=== PATIENT | male | born 1940 | race Caucasian/White ===

== ENCOUNTER 2016-07-01 08:41 | Inpatient (IN) | payer OTHER, MEDICARE ==
[~2016-07-01] VITALS: Ht 175.3 cm; Wt 80.6 kg
[2016-07-01] VITALS (8 sets, daily range): BP systolic 107–152; BP diastolic 45–66
[2016-07-01] MEDS ORDERED: FIRST-VANCOM25 MG/ML PO (11:56)
[2016-07-01] MEDS ORDERED: FUROSEMIDE40 MG PO (11:56)
[2016-07-01] MEDS ORDERED: LOPRESSOR50 MG PO (11:57)
[2016-07-01] MEDS ORDERED: SACCHAROMYCES BOULARDII PO (11:59)
[2016-07-01] MEDS ORDERED: COUMADIN3 MG PO (12:00)
--- NOTE | 2016-07-01 19:39 | HISTORY AND PHYSICAL ---
ADMITTED: 07/01/2016 CHIEF COMPLAINT: 1. Shortness of breath 2. Increased work of breathing HISTORY OF PRESENT ILLNESS: This is a 75-year-old male with a history of non- small cell lung cancer and recent C. difficile colitis, presenting to the hospital with increased work of breathing and shortness of breath. The patient states that he usually has a chronic cough that is productive; however, he denies any fever over the last couple of weeks. The patient states that on 06/16/2016 he was given an antibiotic for an abscessed tooth. He then presented on 06/18/2016 to the emergency department with diarrhea , fever, and stomach pain and was diagnosed with C. difficile colitis. He was admitted to [facility]; however, after he was not improving and the deviation of atrial fibrillation, he was transferred to [facility] for a higher level of care on 06/23/2016. His diarrhea was improving; however, he started developing shortness of breath while at [facility], but he was discharged home on 06/28/2016. On 06/29/2016, the patient saw his primary care provider and started using an inhaler, which initially did help; however, his work of breathing and shortness of breath continued to worsen until presenting to the emergency department again the evening of 06/30/2016. MEDICAL/SURGICAL HISTORY: Non-small cell lung cancer, and he has had 47 radiation treatments and 37 chemotherapy treatments, the last of which was on 06/07/2016. He has new-onset atrial fibrillation within the last month and is on anticoagulation for this. He has a left knee replacement, 3 broken legs, left rotator cuff repair, microdiskectomy in his lumbar spine, right inguinal repair, and left hand surgery. MEDICATIONS: 1. Furosemide 40 mg p.o. daily. 2. Metoprolol 50 mg p.o. b.i.d. 3. Saccharomyces boulardii 250 mg p.o. b.i.d. 4. Vancomycin 125 mg p.o. q.i.d. 5. Warfarin 3 mg p.o. daily. ALLERGIES: 1. NONE. SOCIAL HISTORY: The patient lives with his and dog. He denies any alcohol or drug use. He did quit smoking approximately 35 years ago; but at that point, had smoked 45 pack years. FAMILY HISTORY: Mother had emphysema but was a smoker. Father in his sleep. REVIEW OF SYSTEMS: PHYSICAL EXAMINATION: VITAL SIGNS: Blood pressure is 146/91, pulse is 113, O2 saturation is 98% on 4 L of oxygen. He is afebrile. GENERAL: This is an elderly male lying in bed with mild increased work of breathing. HEENT: Head is atraumatic, normocephalic. Pupils are equal, round, and reactive to light with accommodation bilaterally. Extraocular muscles are intact bilaterally. NECK: Trachea is midline. There is no JVD. HEART: S1, S2, tachycardia. No S3, S4, gallops, or rubs. There is a 2/6 systolic murmur increased at the base. LUNGS: Coarse diffusely with crackles in the bases and increased on the right side and mild wheezing. ABDOMEN: Soft, nontender, nondistended without hepatosplenomegaly or masses. Bowel sounds are active. EXTREMITIES: There is no peripheral edema. LAB/IMAGING: Labs: Sodium is 131, potassium is 4.2, chloride is 93, bicarbonate is 34, BUN of 9, creatinine 0.66, glucose of 123, total protein of 4.65, albumin is 6.5 , calcium is 8.4. White blood cell count of 18.6, hemoglobin of 11.3, hematocrit of 35.8, and platelets of 424. Alkaline phosphatase of 66, ALT of 20, AST of 28, total bilirubin is 0.3. BNP of 340. Troponin is less than 0.01. Flu is negative. INR is 1.4. Blood cultures x2 are pending at [facility]. Other studies: CTA done today showed extensive consolidation of the right upper and middle lobes and alveolar infiltrates in the right lower lobes. CT of his abdomen on 06/18/2016 showed severe colitis with increasing ascites, moderate pericardial effusions, moderate hiatal hernia, and a small pleural effusion. EKG shows 100 beats per minute in a sinus rhythm with a QTc of 419 and left atrial enlargement. IMPRESSION: This is a 75-year-old male with history of non-small cell carcinoma of the lung and recent Clostridium difficile infection, presenting to the hospital with increasing work of breathing and shortness of breath secondary to severe pneumonia. The family is aware of the gravity of the situation. PLAN: 1. Fluids, electrolytes, and nutrition: We will allow the patient to eat as is safe. 2. Cardiac: The patient did have a moderate pericardial effusion as of the CT scan done 06/18/2016. I do not think that this has been reassessed. Will have to monitor closely. 3. Respiratory: The patient has extensive pneumonia of his lungs. We will continue antibiotics and breathing treatments and start steroids. 4. Gastrointestinal Clostridium difficile colitis. Continue oral vancomycin. 5. Prophylaxis: The patient is on Coumadin, but is subtherapeutic on his treatment. Will continue the Coumadin and start Lovenox until his PT/INR is therapeutic. The patient will likely have decreased oral intake and, therefore, we will start famotidine for gastrointestinal ulcer prophylaxis. 6. CODE STATUS: DO NOT RESUSCITATE. HE ALSO DOES NOT WANT TO EVER BE VENTILATED. I did have this discussion with the patient and his today.
[2016-07-02] VITALS (8 sets, daily range): BP systolic 105–132; BP diastolic 48–74
--- NOTE | 2016-07-02 11:10 | Progress Note ---
Subjective General Patient feels much improved today. cough and SOB improved. Less fatigued and more awake. No chest pain. No vomitting. Still having diarrhea, although stable. Has new onset of nausea this am. Physical Exam Vital Signs / I&Os Vital Signs Date Time Temp Pulse Resp B/P Pulse O2 O2 Flow FiO2 Ox Delivery Rate 07/02 0840 105 119/48 07/02 0800 4.0 07/02 0800 Mask 5.0 07/02 0711 36.4 93 18 105/59 100 Mask 5.0 07/02 0046 5.0 07/02 0041 35.7 141 22 121/74 100 Mask 5.0 07/01 2315 Mask 5.0 07/01 2254 36.6 91 24 113/61 99 Nasal 5.0 Cannula 07/01 2107 36.3 102 24 107/56 100 Nasal 5.0 Cannula 07/01 2022 5.0 07/01 1934 117/45 07/01 1850 36.8 110 28 137/54 90 Nasal 4.0 Cannula 07/01 1424 37.5 07/01 1402 121 15 152/60 94 Nasal 4.0 Cannula 07/01 1351 2.0 07/01 1200 116 26 140/49 100 Nasal 4.0 Cannula 07/01 1110 Nasal 4.0 Cannula I&O 07/02 0000 07/01 1600 07/01 0800 Intake Total 300 350 Output Total 3340 1200 Balance -3040 -850 General Appearance Alert, No acute distress, Mild distress Lungs Course lung sounds diffusely with diffuse wheezing, but improved from yesterday. Cardiovascular Regular rate and rhythm, Normal S1 and S2, No murmurs, gallops, rubs Abdomen Normal bowel sounds, Soft, No tenderness Extremities No edema Assessment and Plan Problem List 1. Pneumonia Plan Improving on antibiotics. 2. Non-small cell cancer of right lung Plan will f/u with his oncologist as OP. 3. C. difficile colitis Plan On oral vanco.
[2016-07-02] MEDS ORDERED: XANAX0.25 MG PO (12:46)
[2016-07-03 01:35] VITALS: BP 158/70
[2016-07-03 06:53] VITALS: BP 121/67
--- NOTE | 2016-07-03 08:16 | Progress Note ---
Subjective General Note Date: July 03, 2016 Admission Date: July 01, 2016 Hospital Day: 3 PCP: Sunny Jameson M.D. Status: Inpatient Advanced Directive: NO CODE Room: 306 Brief History: The patient is a 75-year-old white male with a significant past medical history of lung CA, atrial fibrillation, chronic anticoagulation, C. difficile enterocolitis, degenerative joint disease, who presented to [facility] emergency department on the day of admission secondary to complaints of shortness of breath. ER evaluation was consistent with right-sided pneumonia, C. difficile colitis, atrial fibrillation, and chronic anticoagulation. Secondary to the above, the patient was admitted by Edilia Kearns M.D. for further evaluation and treatment For other history present illness, past medical history, family history, social history, review of systems, and admission physical examination please see the patient's history and physical examination and ER visit note in the patient's medical record. Subjective: The patient states he is doing somewhat better today. Diarrhea is improving. Remains short of breath but stable. Overall feels improved Patient requests: None Medications and Allergies Medications Current Medications Sig/Violeta Start time Last Medication Dose Route Stop Time Status Admin Hydrocortisone/ See Dose TID PRN 07/02 1745 AC Pramoxine Insts (1) TOP Alprazolam 0.25 MG BID PRN 07/02 1411 AC 07/02 PO 2113 Ceftriaxone Sodium/ 50 ML DAILY 07/02 0900 AC 07/02 Dextrose IV 0829 Furosemide 40 MG DAILY 07/02 0900 AC 07/02 PO 0829 Sodium Chloride/ 1,000 ML ASDIRECTED 07/02 0745 07/02 Electrolytes IV 2120 Metoprolol Tartrate 50 MG BID 07/01 2100 AC 07/02 PO 211 Methylprednisolone 80 MG Q8H 07/01 1800 AC 07/03 Sodium Succinate IV 0114 Patient Own See Dose BID 07/01 1530 AC 07/02 Medication Insts (2) PO 2113 Clarify Med Order See Dose ASDIRECTED 07/01 1515 AC Insts (3) PO Azithromycin 500 MG 1200 07/01 1500 AC 07/02 Sodium Chloride 250 ML IV 07/03 1300 1200 Enoxaparin Sodium 40 MG QAM 07/01 1500 AC 07/02 SC 0829 Famotidine 20 MG Q12HR 07/01 1500 AC 07/02 PO 2114 Warfarin Sodium 3 MG DAILY@1400 07/01 1500 AC 07/02 PO 1324 Oxycodone/ See Dose Q4H PRN 07/01 1445 AC 07/03 Acetaminophen Insts (4) PO 0117 Acetaminophen 650 MG Q6H PRN 07/01 1430 AC PO Al Hydrox/Mg Hydrox/ 15 ML Q1H PRN 07/01 1430 AC Simethicone PO Atropine Sulfate 0.5 MG Q3MIN PRN 07/01 1430 AC IV Lidocaine HCl See Dose ONCE PRN 07/01 1430 AC Insts (5) IV Magnesium Hydroxide 10 ML DAILY PRN 07/01 1430 AC PO Morphine Sulfate 2 MG Q3M PRN 07/01 1430 AC 07/01 IV 1633 Nitroglycerin 0.4 MG Q5M PRN 07/01 1430 AC SL Ondansetron HCl 4 MG Q6H PRN 07/01 1430 AC PO Ondansetron HCl 4 MG Q6H PRN 07/01 1430 AC IV Albuterol/Ipratropium 3 ML RTQ6H 07/01 1400 AC 07/03 IN 0717 Vancomycin HCl 125 MG QID 07/01 1400 AC 07/03 PO 0645 Dose Instructions: (1)Hydrocortisone/Pramoxine: APPLY TO RECTUM (2)Patient Own Medication: FLORASTOR 250 MG/CAP (3)Clarify Med Order: PT MEDS IN PSB (OMNICELL) (4)Oxycodone/Acetaminophen: 1 - 2 TABLETS (5)Lidocaine HCl: 1.5 MG/KG Allergies Coded Allergies: NKA (07/01/16) Physical Exam Vital Signs / I&Os Vital Signs Date Time Temp Pulse Resp B/P Pulse O2 O2 Flow FiO2 Ox Delivery Rate 07/03 0717 3.0 07/03 0653 97.9 98 17 121/67 97 Nasal 3.0 Cannula 07/03 0146 3.0 07/03 0135 97.9 97 26 158/70 100 Nasal 5.0 Cannula 07/03 011 Nasal 3.0 Cannula 07/023 97.5 91 18 111/59 98 Nasal 5.0 Cannula 07/02 1999 Nasal 4.5 Cannula 07/02 1955 4.5 07/02 1905 98.4 106 24 132/59 98 Nasal 4.0 Cannula 07/02 1455 98 20 127/64 100 Nasal 5.0 Cannula 07/02 1400 4.0 07/02 1126 98.4 91 20 131/65 98 Mask 4.0 07/02 0840 105 119/48 I&O 07/03 0000 07/02 1600 07/02 0800 Intake Total 520 1758 2780 Output Total 250 550 600 Balance 270 1208 2180 General Appearance Alert, Oriented X3, Cooperative, No acute distress Lungs decreased breath sounds right side with rales present Cardiovascular Normal S1 and S2, irregular rhythm, rate slightly elevated 100- 110/minute Abdomen Normal bowel sounds, Soft, No tenderness Extremities No cyanosis, No clubbing Neurological Grossly normal. Psych/Mental Status Mental status normal, Mood normal LAB Results Laboratory Tests 07/03 0420 Chemistry Plasma Sodium (136 - 145 mmol/L) 140 Plasma Potassium (3.5 - 5.1 mmol/L) 4.5 Plasma Chloride (98 - 107 mmol/L) 100 CO2 (Enzymatic) (21 - 32 mmol/L) 35 BUN (7 - 18 mg/dL) 9 Creatinine (0.6 - 1.3 mg/dL) 0.6 Est GFR ( Amer) (mL/min) >60 Est GFR (Non-Af Amer) (mL/min) >60 Glucose (70 - 110 mg/dL) 159 Plasma Calcium (8.5 - 10.1 mg/dL) 8.4 Plasma Magnesium (1.8 - 2.4 mg/dL) 2.2 Coagulation INR (0.8 - 1.2) 2.3 Hematology WBC (4.5 - 11.5 K/uL) 9.7 RBC (4.50 - 5.90 M/uL) 3.74 Hgb (13.5 - 17.5 gm/dL) 10.2 Hct (41.0 - 53.0 %) 31.9 MCV (80 - 100 fL) 85 MCH (26 - 34 pg) 27 RDW (11.6 - 14.8 %) 15.8 Neut % (Auto) (50 - 75 %) 93.2 Lymph % (Auto) (25 - 40 %) 2.9 [place] % (Auto) (3 - 14 %) 3.9 Eos % (Auto) (0 - 4 %) 0 Baso % (Auto) (0 - 2 %) 0 Plt Count, EDTA (150 - 400 K/uL) 440 PUBS MCHC (31 - 37 g/dL) 32 Assessment and Plan Problem List 1. Pneumonia Plan -Continue present therapy Rocephin/Zithromax -Repeat chest x-ray in a.m. -Monitor -Status appears improved with normalization of WBC/patient afebrile -Recheck CBC with manual differential, Procalcitonin a.m. 2. Non-small cell cancer of right lung Plan -Stable -Follow up with hematology/oncology postdischarge -No further evaluation at this time. 3. C. difficile colitis Plan -Status improved -Diarrhea improved -Continue vancomycin 125 mg by mouth 4 times a day -Monitor 4. Atrial fibrillation Status Chronic Onset Date Unknown Plan -Patient with findings of atrial fibrillation -Attempt to obtain previous echocardiogram -Continue beta michael for rate control with ongoing anticoagulation -Monitor 5. Chronic anticoagulation Status Chronic Onset Date Unknown Plan -Continue Coumadin -INR therapeutic at 2.3 -DC Lovenox -Monitor INR Current status: Fair, improved Anticipated discharge date: Anticipated discharge in 1-2 days Anticipated discharge placement: Home Patient care time: Time spent in chart review, patient interview, physical exam, CPOE, and care documentation: 25 minutes Visit to patient today: 2 Complexity of care: Moderate E&M Codes Rounding: Inpt-Moderate/[id number]
[2016-07-03 11:15] VITALS: BP 125/67
[2016-07-03 14:57] VITALS: BP 139/68
[2016-07-03 18:22] VITALS: BP 160/72
[2016-07-03 22:43] VITALS: BP 139/72
[2016-07-04] VITALS (11 sets, daily range): BP systolic 106–175; BP diastolic 45–96
--- NOTE | 2016-07-04 06:20 | DIAGNOSTIC IMAGING REPORT ---
PROCEDURE: XR CHEST 1 VIEW INDICATION: Pneumonia. History of lung carcinoma. TECHNIQUE: Portable AP view (so 05:00 hours). COMPARISON: None. FINDINGS: There is severe chronic right upper lung volume loss and pleural thickening with mild pleural thickening or effusion at the right lung base. Mild cardiomegaly with pulmonary vascular congestion. There mild increased parenchymal changes at the lung bases with sparing of the left upper lung. Status post resection of the left distal clavicle. Thorax is normal. IMPRESSION: 1. Severe chronic right upper lung volume loss and pleural thickening consistent with history of lung carcinoma (clinical confirmation recommended). 2. Mild pleural thickening or small effusion at the right lung base. 3. Mild cardiomegaly and pulmonary vascular congestion. While there is no evidence of interstitial edema, consider increased fluid status or occult congestive heart failure. 4. Mild parenchymal changes of bilateral lung bases. Consider underlying pneumonia (e.g., aspiration, bacterial). 5. Comparison with prior outside studies would be of assistance in evaluating. 6. Findings discussed with Dr. Taveras.
--- NOTE | 2016-07-04 07:52 | Progress Note ---
Subjective General Note Date: July 04, 2016 Admission Date: July 01, 2016 Hospital Day: 4 PCP: Sunny Jameson M.D. Status: Inpatient Advanced Directive: NO CODE Room: 306 Brief History: The patient is a 75-year-old white male with a significant past medical history of lung CA, atrial fibrillation, chronic anticoagulation, C. difficile enterocolitis, degenerative joint disease, who presented to [facility] emergency department on the day of admission secondary to complaints of shortness of breath. ER evaluation was consistent with right-sided pneumonia, C. difficile colitis, atrial fibrillation, and chronic anticoagulation. Secondary to the above, the patient was admitted by Edilia Kearns M.D. for further evaluation and treatment For other history present illness, past medical history, family history, social history, review of systems, and admission physical examination please see the patient's history and physical examination and ER visit note in the patient's medical record. Subjective: The patient states he is doing somewhat better today, had episode of fairly severe shortness of breath last night. Diarrhea is improving. Remains short of breath but stable. Overall feels improved but doesn't feel ready for discharge at this time Patient requests: None Medications and Allergies Medications Current Medications Sig/Violeta Start time Last Medication Dose Route Stop Time Status Admin Albuterol Sulfate 2.5 MG Q2H PRN 07/04 0445 AC 07/04 IN 0450 Metoprolol Tartrate 50 MG Q8HR 07/03 1800 AC 07/04 PO 0600 Hydrocortisone/ See Dose TID PRN 07/02 1745 AC Pramoxine Insts (1) TOP Alprazolam 0.25 MG BID PRN 07/02 1411 AC 07/03 PO 211 Ceftriaxone Sodium/ 50 ML DAILY 07/02 0900 AC 07/03 Dextrose IV 0928 Furosemide 40 MG DAILY 07/02 0900 AC 07/03 PO 0929 Methylprednisolone 80 MG Q8H 07/01 1800 AC 07/04 Sodium Succinate IV 0152 Patient Own See Dose BID 07/01 1530 AC 07/03 Medication Insts (2) PO 3 Clarify Med Order See Dose ASDIRECTED 07/01 1515 AC Insts (3) PO Famotidine 20 MG Q12HR 07/01 1500 AC 07/03 PO 2116 Warfarin Sodium 3 MG DAILY@1400 07/01 1500 AC 07/03 PO 1448 Oxycodone/ See Dose Q4H PRN 07/01 1445 AC 07/04 Acetaminophen Insts (4) PO 0158 Acetaminophen 650 MG Q6H PRN 07/01 1430 AC PO Al Hydrox/Mg Hydrox/ 15 ML Q1H PRN 07/01 1430 AC Simethicone PO Atropine Sulfate 0.5 MG Q3MIN PRN 07/01 1430 AC IV Lidocaine HCl See Dose ONCE PRN 07/01 1430 AC Insts (5) IV Magnesium Hydroxide 10 ML DAILY PRN 07/01 1430 AC PO Morphine Sulfate 2 MG Q3M PRN 07/01 1430 AC 07/01 IV 1633 Nitroglycerin 0.4 MG Q5M PRN 07/01 1430 AC SL Ondansetron HCl 4 MG Q6H PRN 07/01 1430 AC PO Ondansetron HCl 4 MG Q6H PRN 07/01 1430 AC IV Albuterol/Ipratropium 3 ML RTQ6H 07/01 1400 AC 07/04 IN 0746 Vancomycin HCl 125 MG QID 07/01 1400 AC 07/04 PO 0545 Dose Instructions: (1)Hydrocortisone/Pramoxine: APPLY TO RECTUM (2)Patient Own Medication: FLORASTOR 250 MG/CAP (3)Clarify Med Order: PT MEDS IN PSB (OMNICELL) (4)Oxycodone/Acetaminophen: 1 - 2 TABLETS (5)Lidocaine HCl: 1.5 MG/KG Allergies Coded Allergies: NKA (07/01/16) Physical Exam Vital Signs / I&Os Vital Signs Date Time Temp Pulse Resp B/P Pulse O2 O2 Flow FiO2 Ox Delivery Rate 07/04 0741 3.0 07/04 0651 98.1 96 22 128/80 98 Nasal 3.0 Cannula 07/04 0539 137/75 07/04 0451 3.0 07/04 0407 155/90 07/04 0402 93 22 175/96 99 Nasal 2.5 Cannula 07/04 0125 3.0 07/04 0110 97.9 100 22 141/88 97 Nasal 3.0 Cannula 07/033 97.9 96 20 139/72 100 Nasal 3.0 Cannula 07/03 1999 Nasal 2.5 Cannula 07/03 193 2.5 07/03 1822 97.9 115 18 160/72 96 Nasal 2.5 Cannula 07/03 1457 98.4 100 28 139/68 100 Nasal 2.5 Cannula 07/03 1335 3.0 07/03 1115 98.4 92 21 125/67 97 Nasal 3.0 Cannula 07/03 1056 3.0 I&O 07/04 0000 07/03 1600 07/03 0800 Intake Total 2871 843 1856 Output Total 1500 1600 600 Balance 359 -1120 786 General Appearance Alert, Oriented X3, Cooperative, No acute distress Lungs Diffuse rhonchi, minimal expiratory wheezes with basilar crackles present Cardiovascular Normal S1 and S2, irregular rhythm, mild tachycardia Abdomen Normal bowel sounds, Soft, No tenderness Extremities No cyanosis, No clubbing, 2+ pedal edema bilaterally Neurological Grossly normal Psych/Mental Status Mental status normal, Mood normal LAB Results Laboratory Tests 07/04 07/04 07/04 0430 0430 0400 Chemistry B-Natriuretic Peptide (5 - 100 pg/ml) 1370 Cancelled Procalcitonin (0 - 0.5 ng/mL) <0.5 Coagulation INR (0.8 - 1.2) 2.7 Hematology WBC (4.5 - 11.5 K/uL) 9.6 RBC (4.50 - 5.90 M/uL) 4.04 Hgb (13.5 - 17.5 gm/dL) 10.8 Hct (41.0 - 53.0 %) 34.3 MCV (80 - 100 fL) 85 MCH (26 - 34 pg) 27 RDW (11.6 - 14.8 %) 15.6 Neut % (Auto) (50 - 75 %) 86 Lymph % (Auto) (25 - 40 %) 4 [place] % (Auto) (3 - 14 %) 2 Eos % (Auto) (0 - 4 %) 0 Baso % (Auto) (0 - 2 %) 0 Band Neutrophils % (0 - 8 %) 8 Metamyelocytes % (0 - 1 %) 0 Myelocytes (0 - 1 %) 0 Other Cell Type 0 Plt Count, EDTA (150 - 400 K/uL) 504 RBC Morphology (52847 A) 1+ MICROCYTOSIS PUBS MCHC (31 - 37 g/dL) 31 Imaging Chest x-ray IMPRESSION: 1. Severe chronic right upper lung volume loss and pleural thickening consistent with history of lung carcinoma (clinical confirmation recommended). 2. Mild pleural thickening or small effusion at the right lung base. 3. Mild cardiomegaly and pulmonary vascular congestion. While there is no evidence of interstitial edema, consider increased fluid status or occult congestive heart failure. 4. Mild parenchymal changes of bilateral lung bases. Consider underlying pneumonia (e.g., aspiration, bacterial). 5. Comparison with prior outside studies would be of assistance in evaluating. 6. Findings discussed with Dr. Taveras. Dictated by: LAN LYLE MD D: CHELSEY;07/04/16 0619 Assessment and Plan Problem List 1. Pneumonia Plan -Improved -Afebrile, WBC within normal limits, Procalcitonin within normal limits -Switch to Ceftin 500 mg by mouth twice a day -Possible discharge in 1-2 days with improved status 2. Non-small cell cancer of right lung Plan -stable -Scheduled follow-up this Thursday, July 07, 2016 with oncology -No further evaluation at this time 3. C. difficile colitis Plan -Stable to improved -Decreased diarrhea with increasing formed stool -Continue vancomycin 125 mg by mouth 4 times a day -Monitor 4. Chronic anticoagulation Status Chronic Onset Date Unknown Plan -INR therapeutic -INR 2.7 today -Continue present medical regimen -INR in a.m. 5. CHF (congestive heart failure) Status Chronic Onset Date Unknown Plan -Status unstable, patient with increased shortness of breath this a.m. -BNP elevated -Echocardiogram shows EF in the 30% range. But poor quality study -Atacand 4 mg by mouth twice a day added to medical regimen -Continue beta michael -Lasix 20 mg IV, 40 mg by mouth daily -Monitor -Low-salt diet 6. Atrial fibrillation Status Chronic Onset Date Unknown Plan -Heart rate slightly increased -Increased Lopressor to 50 mg by mouth 3 times a day -Monitor -Check echocardiogram -Continue anticoagulation Current status: Fair, unstable Anticipated discharge date: Anticipated discharge in 1-2 days with improved status Anticipated discharge placement: Home Patient care time: Time spent in chart review, patient interview, physical exam, CPOE, and care documentation: 25 minutes Visit to patient today: 1 Complexity of care: Moderate E&M Codes Rounding: Inpt-High/[id number]
--- NOTE | 2016-07-04 18:28 | DIAGNOSTIC IMAGING REPORT ---
REFERRING PHYSICIAN/PROVIDER: Jay Kinsey MD CONSULTING TRACKMOBILE OPERATOR: David York Jr MD PROCEDURE: M-mode 2D echocardiography with spectral and color flow Doppler TECHNICAL QUALITY: The study quality was technically difficult. INDICATION: Afib, chf RHYTHM DURING PROCEDURE: The patient was in atrial fibrillation with rapid ventricular response during the exam of the heart rate exceeding 100 beats per minute. INTERPRETATIONS: LEFT VENTRICLE: The left ventricle is grossly normal size. The left ventricular ejection fraction is grossly normal. Regional wall motion abnormalities cannot be excluded due to limited visualization. Diastolic function could not be accurately assessed due to atrial fibrillation. RIGHT VENTRICLE: The right ventricle grossly appears normal in size with probable normal systolic function. ATRIA: The left atrium is not well visualized. The right atrium is not well visualized. The interatrial septum is intact with no evidence for an atrial septal defect. MITRAL VALVE: The mitral valve is grossly normal. There is trace mitral regurgitation. AORTIC VALVE: The aortic valve is not well visualized. There is no hemodynamically significant valvular aortic stenosis. There is trace aortic regurgitation. TRICUSPID VALVE: The tricuspid valve is not well visualized but is grossly normal. There is no evidence of tricuspid regurgitation. Pulmonary artery pressures could not be estimated because of the lack of a measurable TR jet velocity. PULMONIC VALVE: The pulmonic valve is not well visualized. GREAT VESSELS: The aorta root is not well visualized. The ascending aorta cannot be visualized. The IVC is dilated yet a collapses greater than 50% with the sniff. This suggests a right atrial pressure of 8 mmHg. PERICARDIUM: There is a small to moderate size circumferential pericardial effusion noted. There are no echocardiographic indications of cardiac tamponade. Pericardial fibrinous strands are noted. There is a moderate left-sided pleural effusion. IMPRESSION: 1. There is a small to moderate-sized pericardial effusion. There is no evidence of echocardiographic indications of cardiac tamponade. 2. The left ventricle is grossly normal size with probable normal systolic function. 3. The right ventricle grossly appears normal in size with probable normal systolic function. 4. There is no gross evidence of significant valvular abnormalities.
[2016-07-05] VITALS (7 sets, daily range): BP systolic 117–139; BP diastolic 49–88
--- NOTE | 2016-07-05 07:36 | Progress Note ---
Subjective General Note Date: July 05, 2016 Admission Date: July 01, 2016 Hospital Day: 5 PCP: Sunny Jameson M.D. Status: Inpatient Advanced Directive: NO CODE Room: 306 Brief History: The patient is a 75-year-old white male with a significant past medical history of lung CA, atrial fibrillation, chronic anticoagulation, C. difficile enterocolitis, degenerative joint disease, who presented to [facility] emergency department on the day of admission secondary to complaints of shortness of breath. ER evaluation was consistent with right-sided pneumonia, C. difficile colitis, atrial fibrillation, and chronic anticoagulation. Secondary to the above, the patient was admitted by Edilia Kearns M.D. for further evaluation and treatment For other history present illness, past medical history, family history, social history, review of systems, and admission physical examination please see the patient's history and physical examination and ER visit note in the patient's medical record. Subjective: The patient states he is doing significantly better today. Decrease shortness of breath. Diarrhea improved. Patient requests: None Medications and Allergies Medications Current Medications Sig/Violeta Start time Last Medication Dose Route Stop Time Status Admin Candesartan Cilexetil 4 MG BID 07/04 09 AC 07/04 PO 2051 Cefuroxime Axetil 500 MG BID 07/04 0900 AC 07/04 PO 205 Metoprolol Tartrate 50 MG Q8HR 07/04 09 AC 07/05 PO 0531 Prednisone 20 MG BID 07/04 0900 AC 07/04 PO 205 Albuterol Sulfate 2.5 MG Q2H PRN 07/04 0445 AC 07/04 IN 0450 Hydrocortisone/ See Dose TID PRN 07/02 1745 AC Pramoxine Insts (1) TOP Alprazolam 0.25 MG BID PRN 07/02 1411 AC 07/04 PO 2124 Furosemide 40 MG DAILY 07/02 0900 AC 07/04 PO 0831 Patient Own See Dose BID 07/01 1530 AC 07/04 Medication Insts (2) PO 2051 Clarify Med Order See Dose ASDIRECTED 07/01 1515 AC Insts (3) PO Famotidine 20 MG Q12HR 07/01 1500 AC 07/04 PO 205 Warfarin Sodium 3 MG DAILY@1400 07/01 1500 AC 07/04 PO 1432 Oxycodone/ See Dose Q4H PRN 07/01 1445 AC 07/05 Acetaminophen Insts (4) PO 0146 Acetaminophen 650 MG Q6H PRN 07/01 1430 AC PO Atropine Sulfate 0.5 MG Q3MIN PRN 07/01 1430 AC IV Lidocaine HCl See Dose ONCE PRN 07/01 1430 AC Insts (5) IV Ondansetron HCl 4 MG Q6H PRN 07/01 1430 AC PO Ondansetron HCl 4 MG Q6H PRN 07/01 1430 AC IV Albuterol/Ipratropium 3 ML RTQ6H 07/01 1400 AC 07/05 IN 0207 Vancomycin HCl 125 MG QID 07/01 1400 AC 07/05 PO 0532 Dose Instructions: (1)Hydrocortisone/Pramoxine: APPLY TO RECTUM (2)Patient Own Medication: FLORASTOR 250 MG/CAP (3)Clarify Med Order: PT MEDS IN PSB (OMNICELL) (4)Oxycodone/Acetaminophen: 1 - 2 TABLETS (5)Lidocaine HCl: 1.5 MG/KG Allergies Coded Allergies: NKA (07/01/16) Physical Exam Vital Signs / I&Os Vital Signs Date Time Temp Pulse Resp B/P Pulse O2 O2 Flow FiO2 Ox Delivery Rate 07/05 0532 97.9 83 20 128/68 96 Nasal 1.0 Cannula 07/05 0208 1.0 07/05 147 97.7 93 20 139/66 94 Nasal 1.0 Cannula 07/04 2226 98.4 75 19 111/65 96 Nasal 2.0 Cannula 07/04 2121 77 07/04 210 79 07/04 2048 98.1 87 23 132/65 96 Nasal 2.0 Cannula 07/04 2026 2.0 07/04 2026 Nasal 2.0 Cannula 07/04 1820 98.1 85 20 106/56 98 Nasal 2.0 Cannula 07/04 1539 2.0 07/04 1444 98.1 98 24 112/45 100 Nasal 3.0 Cannula 07/04 1038 3.0 07/04 1012 98.1 93 25 115/67 99 Nasal 3.0 Cannula 07/04 0926 101 24 120/53 99 Nasal 2.0 Cannula 07/04 0741 3.0 I&O 07/05 0000 07/04 1600 07/04 0800 Intake Total 800 1160 480 Output Total 579 3350 975 Balance 225 -2190 -495 General Appearance Alert, Oriented X3, Cooperative, No acute distress Lungs Scattered rhonchi, no significant wheezes. Cardiovascular Normal S1 and S2, irregular rhythm, rate controlled Abdomen Normal bowel sounds, Soft, No tenderness Extremities No cyanosis, No clubbing, 1-2+ edema bilaterally lower extremities slightly improved Neurological Cranial nerves intact, Strength 5/5 x4 ext's, No lateralizing signs Psych/Mental Status Mental status normal, Mood normal LAB Results Laboratory Tests 07/05 07/05 0634 0634 Chemistry Plasma Sodium (136 - 145 mmol/L) 142 Plasma Potassium (3.5 - 5.1 mmol/L) 3.7 Plasma Chloride (98 - 107 mmol/L) 99 CO2 (Enzymatic) (21 - 32 mmol/L) 36 BUN (7 - 18 mg/dL) 15 Creatinine (0.6 - 1.3 mg/dL) 0.7 Est GFR ( Amer) (mL/min) >60 Est GFR (Non-Af Amer) (mL/min) >60 Glucose (70 - 110 mg/dL) 100 Plasma Calcium (8.5 - 10.1 mg/dL) 9.2 Iron (35 - 150 ug/dL) 56 TIBC (260 - 445 ug/dL) 228 Iron Saturation (15 - 50 %) 25 Vitamin B12 (211 - 946 pg/mL) 573 Folate (>3.0 ng/mL) 8.3 Coagulation INR (0.8 - 1.2) 2.6 Hematology WBC (4.5 - 11.5 K/uL) 9.8 RBC (4.50 - 5.90 M/uL) 4.44 Hgb (13.5 - 17.5 gm/dL) 11.9 Hct (41.0 - 53.0 %) 37.7 MCV (80 - 100 fL) 85 MCH (26 - 34 pg) 27 RDW (11.6 - 14.8 %) 15.7 Neut % (Auto) (50 - 75 %) 83 Lymph % (Auto) (25 - 40 %) 4 [place] % (Auto) (3 - 14 %) 10 Eos % (Auto) (0 - 4 %) 0 Baso % (Auto) (0 - 2 %) 0 Band Neutrophils % (0 - 8 %) 3 Metamyelocytes % (0 - 1 %) 0 Myelocytes (0 - 1 %) 0 Other Cell Type 0 Plt Count, EDTA (150 - 400 K/uL) 544 RBC Morphology 1+ HYPOCHROMIA PUBS MCHC (31 - 37 g/dL) 32 Assessment and Plan Problem List 1. Pneumonia Plan -Resolved -Complete course of oral antimicrobials -Outpatient follow-up with PCP 2. Non-small cell cancer of right lung Plan -Stable -Follow up with hematology oncology July 07, 2016 3. C. difficile colitis Plan -Improving -Continue vancomycin 125 mg by mouth every 6 hours. 4. Chronic anticoagulation Status Chronic Onset Date Unknown Plan -Stable. -INR 2.5 -Continue present therapy -Monitor 5. Atrial fibrillation Status Chronic Onset Date Unknown Plan -Right stable -Continue anticoagulation -Continue present medical therapy. 6. CHF (congestive heart failure) Status Chronic Onset Date Unknown Plan -Status improved -Decrease shortness of breath status post addition of Atacand and increased dosage of Lasix -Echocardiogram poor study but grossly normal LV ejection fraction -Low-salt diet Current status: Fair, improved Anticipated discharge date: Anticipated discharge in a.m. Anticipated discharge placement: Home Patient care time: Time spent in chart review, patient interview, physical exam, CPOE, and care documentation: 25 minutes Visit to patient today: 2 Complexity of care: Moderate E&M Codes Rounding: Inpt-Moderate/[id number]
[2016-07-06 02:51] VITALS: BP 130/79
[2016-07-06 05:49] VITALS: BP 133/75
--- NOTE | 2016-07-06 09:31 | Progress Note ---
Subjective General Note Date: July 06, 2016 Admission Date: July 01, 2016 Hospital Day: 6 PCP: Sunny Jameson M.D. Status: Inpatient Advanced Directive: NO CODE Room: 306 Brief History: The patient is a 75-year-old white male with a significant past medical history of lung CA, atrial fibrillation, chronic anticoagulation, C. difficile enterocolitis, degenerative joint disease, who presented to [facility] emergency department on the day of admission secondary to complaints of shortness of breath. ER evaluation was consistent with right-sided pneumonia, C. difficile colitis, atrial fibrillation, and chronic anticoagulation. Secondary to the above, the patient was admitted by Edilia Kearns M.D. for further evaluation and treatment For other history present illness, past medical history, family history, social history, review of systems, and admission physical examination please see the patient's history and physical examination and ER visit note in the patient's medical record. Subjective: The patient states he is doing significantly better today. Decrease shortness of breath. Diarrhea improved. Ambulating in addison well. No O2 requirement. Patient requests: None Medications and Allergies Medications Current Medications Sig/Violeta Start time Last Medication Dose Route Stop Time Status Admin Furosemide 40 MG DIUB 07/05 1800 AC 07/06 PO 0550 Candesartan Cilexetil 4 MG BID 07/04 0900 AC 07/06 PO 0844 Cefuroxime Axetil 500 MG BID 07/04 0900 AC 07/06 PO 0844 Metoprolol Tartrate 50 MG Q8HR 07/04 0900 AC 07/06 PO 0550 Prednisone 20 MG BID 07/04 0900 AC 07/06 PO 0844 Albuterol Sulfate 2.5 MG Q2H PRN 07/04 0445 AC 07/04 IN 0450 Hydrocortisone/ See Dose TID PRN 07/02 1745 AC Pramoxine Insts (1) TOP Alprazolam 0.25 MG BID PRN 07/02 1411 AC 07/06 PO 0743 Patient Own See Dose BID 07/01 1530 AC 07/06 Medication Insts (2) PO 0844 Clarify Med Order See Dose ASDIRECTED 07/01 1515 AC Insts (3) PO Famotidine 20 MG Q12HR 07/01 1500 AC 07/06 PO 0843 Warfarin Sodium 3 MG DAILY@1400 07/01 1500 AC 07/05 PO 1408 Oxycodone/ See Dose Q4H PRN 07/01 1445 AC 07/06 Acetaminophen Insts (4) PO 0550 Acetaminophen 650 MG Q6H PRN 07/01 1430 AC PO Atropine Sulfate 0.5 MG Q3MIN PRN 07/01 1430 AC IV Lidocaine HCl See Dose ONCE PRN 07/01 1430 AC Insts (5) IV Ondansetron HCl 4 MG Q6H PRN 07/01 1430 AC PO Ondansetron HCl 4 MG Q6H PRN 07/01 1430 AC IV Albuterol/Ipratropium 3 ML RTQ6H 07/01 1400 AC 07/06 IN 0801 Vancomycin HCl 125 MG QID 07/01 1400 AC 07/06 PO 0550 Dose Instructions: (1)Hydrocortisone/Pramoxine: APPLY TO RECTUM (2)Patient Own Medication: FLORASTOR 250 MG/CAP (3)Clarify Med Order: PT MEDS IN PSB (OMNICELL) (4)Oxycodone/Acetaminophen: 1 - 2 TABLETS (5)Lidocaine HCl: 1.5 MG/KG Allergies Coded Allergies: NKA (07/01/16) Physical Exam Vital Signs / I&Os Vital Signs Date Time Temp Pulse Resp B/P Pulse O2 O2 Flow FiO2 Ox Delivery Rate 07/06 0558 Nasal 1.0 Cannula 07/06 0549 97.7 90 18 133/75 95 Nasal 1.0 Cannula 07/06 0251 98.1 88 18 130/79 98 Nasal 1.0 Cannula 07/06 0241 1.0 07/06 0109 98 Nasal 1.0 Cannula 07/05 2138 86 16 131/74 97 Room Air 07/05 2037 Room Air 07/05 2028 98.1 95 139/81 98 Room Air 07/05 1849 98.2 102 21 117/88 Room Air 07/05 1429 98.2 96 21 130/63 96 02 1413 2.0 07/05 1232 Room Air 07/05 1021 97.7 89 21 118/49 96 Room Air 0.0 I&O 07/06 0000 07/05 1600 07/05 0800 Intake Total 480 960 480 Output Total 725 2630 1250 Balance -245 -5338 -770 General Appearance Alert, Oriented X3, Cooperative, No acute distress Lungs Scattered rhonchi. No significant wheezes. Cardiovascular Normal S1 and S2, Irregular rhythm., Rate controlled. Abdomen Normal bowel sounds, Soft Extremities No cyanosis, No clubbing, 1+ pedal edema-improved, bilateral Neurological Grossly normal Psych/Mental Status Mental status normal, Mood normal LAB Results Laboratory Tests 07/06 07/06 0520 0520 Chemistry Plasma Sodium (136 - 145 mmol/L) 141 Plasma Potassium (3.5 - 5.1 mmol/L) 4.0 Plasma Chloride (98 - 107 mmol/L) 99 CO2 (Enzymatic) (21 - 32 mmol/L) 33 BUN (7 - 18 mg/dL) 14 Creatinine (0.6 - 1.3 mg/dL) 0.7 Est GFR ( Amer) (mL/min) >60 Est GFR (Non-Af Amer) (mL/min) >60 Glucose (70 - 110 mg/dL) 103 Plasma Calcium (8.5 - 10.1 mg/dL) 9.0 B-Natriuretic Peptide (5 - 100 pg/ml) 608 Assessment and Plan Problem List 1. Pneumonia Plan -improved -Patient switched to oral antimicrobials, Ceftin 500 mg by mouth twice a day -Discharge today 2. Non-small cell cancer of right lung Plan -stable -Outpatient follow-up with oncology as scheduled 3. C. difficile colitis Plan -improved -Bowel movements consistency much improved -Continue vancomycin 125 mg by mouth every 6 hours -Outpatient follow-up PCP 4. Chronic anticoagulation Status Chronic Onset Date Unknown Plan -stable -Continue Coumadin current dosage schedule -INR therapeutic 5. Atrial fibrillation Status Chronic Onset Date Unknown Plan -heart rate controlled -Continue Lopressor 50 mg by mouth 3 times a day -Outpatient follow-up with PCP next week 6. CHF (congestive heart failure) Status Chronic Onset Date Unknown Plan -echocardiogram of poor quality but appears with probable normal LVEF -Patient with improved status on Atacand, Lasix, beta blockers -BNP significantly improved. -Continue present therapy, CHF education, low-salt diet Current status: fair, improved Anticipated discharge date: Today Anticipated discharge placement: Home Patient care time: Time spent in chart review, patient interview, physical exam, CPOE, and care documentation: 30 minutes Visit to patient today: 2 Complexity of care: Moderate For other recommendations regarding discharge diet, activity, followup, and discharge medications please see the patient's discharge instructions. Greater than 30 min. was spent in the patient's discharge preparation including discharge interview and physical examination, progress note, discharge instructions, and discharge summary E&M Codes Discharge: Inpt >30 min spent/[id number]
--- NOTE | 2016-07-06 09:33 | Discharge Summary ---
Discharge Summary Report Admit Date 07/01/16 Discharge Date 07/06/16 Admission Diagnosis 1. Pneumonia 2. Lungs cancer 3. C. difficile enterocolitis Discharge Diagnosis 1. Pneumonia 2. Lungs cancer 3. C. difficile enterocolitis 4. CHF 5. Atrial fibrillation 6. Chronic anticoagulation Brief History The patient is a 75-year-old white male with a significant past medical history of lung CA, atrial fibrillation, chronic anticoagulation, C. difficile enterocolitis, degenerative joint disease, who presented to [facility] emergency department on the day of admission secondary to complaints of shortness of breath. ER evaluation was consistent with right-sided pneumonia, C. difficile colitis, atrial fibrillation, and chronic anticoagulation. Secondary to the above, the patient was admitted by Edilia Kerans M.D. for further evaluation and treatment For other history present illness, past medical history, family history, social history, review of systems, and admission physical examination please see the patient's history and physical examination and ER visit note in the patient's medical record. Hospital Course The following problems and their management were noted during the patient's hospitalization: 1. Pneumonia Patient presented with findings of pneumonia. Treated with IV followed by oral antimicrobials. Patient afebrile with normal WBC, procalcitonin on discharge. Status much improved. Patient discharged home on Ceftin 500 mg by mouth twice a day. 2. Lungs cancer Stable. No further evaluation undertaken during the patient's hospitalization. Outpatient follow-up with oncology as scheduled. 3. C. difficile enterocolitis Patient presented with history of C. difficile enterocolitis. Status improved at discharge. Improved consistency of BM. Patient discharged on vancomycin 125 mg by mouth 4 times a day. Outpatient follow-up with his PCP next week. 4. CHF The patient had findings of CHF. Elevated BNP. Echocardiogram was of poor quality but felt to have normal EF. Patient was treated with SAMANTA inhibitor, increase diuretics, and beta michael. This resulted in significant improvement in the patient's exercise tolerance/shortness of breath. He was discharged on combination of the above medications. Outpatient follow-up with PCP. CHF education. Low-salt diet. 5. Atrial fibrillation Stable. Slight tachycardia which was improved with Lopressor 50 mg by mouth 3 times a day. Continue anticoagulation. Outpatient follow-up with PCP. 6. Chronic anticoagulation See above. INR therapeutic-2.5 on discharge. Follow-up with PCP next week. Lab/Imaging Laboratory Tests 07/06 07/06 0504 0519 Chemistry Plasma Sodium (136 - 145 mmol/L) 141 Plasma Potassium (3.5 - 5.1 mmol/L) 4.0 Plasma Chloride (98 - 107 mmol/L) 99 CO2 (Enzymatic) (21 - 32 mmol/L) 33 BUN (7 - 18 mg/dL) 14 Creatinine (0.6 - 1.3 mg/dL) 0.7 Est GFR ( Amer) (mL/min) >60 Est GFR (Non-Af Amer) (mL/min) >60 Glucose (70 - 110 mg/dL) 103 Plasma Calcium (8.5 - 10.1 mg/dL) 9.0 B-Natriuretic Peptide (5 - 100 pg/ml) 608 Discharge Instructions/Meds For other recommendations regarding discharge diet, activity, followup, and discharge medications please see the patient's discharge instructions. Discharge condition: Fair, improved Greater than 30 min. was spent in the patient's discharge preparation including discharge interview and physical examination, progress note, discharge instructions, and discharge summary The patient was interviewed and examined on the day of discharge. E&M Codes Discharge: Inpt >30 min spent/[id number]
[2016-07-06 11:02] VITALS: BP 130/70
[2016-07-06] MEDS ORDERED: ATACAND8 MG PO (12:19)
[2016-07-06] MEDS ORDERED: CEFUROXIME AXE250 MG PO (12:19)
[2016-07-06] MEDS ORDERED: VICODIN EQUIVAL1 TAB PO (12:19)
[2016-07-06] MEDS ORDERED: IPRATROPIUM BROMIDE/ IN (12:19)
[2016-07-06] MEDS ORDERED: ALBUTEROL2.5 MG/3 M IN (12:19)
[2016-07-06] MEDS ORDERED: PREDNISONE20 MG PO (12:19)
--- NOTE | 2016-07-06 12:22 | Provider's Discharge Care Plan ---
Problem, Goal, Plan Problem List 1. Pneumonia Goals: Improve disease control, Prevent disease progress Instructions: Follow up as directed, Take meds as directed 2. C. difficile colitis Goals: Improve disease control, Prevent disease progress Instructions: Follow up as directed, Take meds as directed 3. Atrial fibrillation Goals: Improve disease control, Prevent disease progress Instructions: Follow up as directed, Take meds as directed 4. CHF (congestive heart failure) Goals: Improve disease control, Prevent disease progress Instructions: Follow up as directed, Take meds as directed, Avoid processed foods, low salt diet
[2016-07-06] MEDS ORDERED: CEFTIN500 MG PO (12:23)
[2016-07-06] MEDS ORDERED: NEBULIZER IN (12:24)
== END 2016-07-06 14:00 | disposition home or self-care (01) | DRG 194 ==
LOC: ACUTE3 SRH 08:41 → CC SRH 10:52
PROVIDERS: ADMIT Family Medicine
DX: J18.9 Pneumonia, unspecified organism (principal); C34.90 Malignant neoplasm of unspecified part of unspecified bronchus or lung; A04.7 Enterocolitis due to Clostridium difficile; I50.9 Heart failure, unspecified; I48.91 Unspecified atrial fibrillation; Z79.01 Long term (current) use of anticoagulants; Z92.3 Personal history of irradiation; Z87.891 Personal history of nicotine dependence
CPT/HCPCS: 81240; 83475; 85241; 90047; 90065; 90074; 90100; 90616; 91295; 91320; 91504; 91505; 91643; 92132; 92610; 92668; 92670; 92720; 93004; 94060; 95059; 95061